=== PATIENT | female | born 1980 | race Caucasian/White ===

== ENCOUNTER → 2019-03-10 13:35 | Outpatient (BNVA) | payer MEDICAID, SELFPAY | PROVIDERS: Family Provider Family Medicine; PCP Preventive Medicine Occupational Medicine; Visit Provider Nurse Practitioner Women's Health | DX: Z01.89 Encounter for other specified special examinations (principal) | CPT/HCPCS: 84315 ==

== ENCOUNTER → 2019-04-04 09:41 | Outpatient (BNVA) | payer MEDICAID, SELFPAY | PROVIDERS: Family Provider Family Medicine; PCP Preventive Medicine Occupational Medicine; Visit Provider Obstetrics & Gynecology | DX: O09.93 Supervision of high risk pregnancy, unspecified, third trimester (principal) | CPT/HCPCS: 81000; 82950; 84315; 85027 ==

== ENCOUNTER → 2019-04-18 10:05 | Outpatient (BNVA) | payer MEDICAID, SELFPAY | PROVIDERS: Family Provider Family Medicine; PCP Preventive Medicine Occupational Medicine; Visit Provider Obstetrics & Gynecology Female Pelvic Medicine and Reconstructive Surgery | DX: Z01.89 Encounter for other specified special examinations (principal) | CPT/HCPCS: 84315 ==

== ENCOUNTER → 2019-04-19 08:45 | Outpatient (BNVA) | payer MEDICAID, SELFPAY | PROVIDERS: Family Provider Family Medicine; PCP Preventive Medicine Occupational Medicine; Visit Provider Obstetrics & Gynecology Female Pelvic Medicine and Reconstructive Surgery | DX: O99.013 Anemia complicating pregnancy, third trimester (principal); O99.810 Abnormal glucose complicating pregnancy | CPT/HCPCS: 82951; 82952 ==

== ENCOUNTER → 2019-05-04 08:46 | Outpatient (BNVA) | payer MEDICAID, SELFPAY | PROVIDERS: Family Provider Family Medicine; PCP Preventive Medicine Occupational Medicine; Visit Provider Obstetrics & Gynecology | DX: O99.210 Obesity complicating pregnancy, unspecified trimester (principal); Z36.9 Encounter for antenatal screening, unspecified; Z3A.35 35 weeks gestation of pregnancy | CPT/HCPCS: 76816; 84315 ==

== ENCOUNTER 2019-05-07 18:43 | Outpatient (CLI) | payer MEDICAID, SELFPAY ==
[2019-05-07] VITALS (8 sets, daily range): BP systolic 111–126; BP diastolic 61–69; PULSE 106–119; RESP 16; TEMP 36.7; O2SAT 97–98; BMI 40.3
== END 2019-05-07 19:34 | disposition home or self-care (01) ==
LOC: OPOB 18:51 → OBGYN 19:27 → OPOB 05-09 07:47
PROVIDERS: Family Provider Family Medicine; PCP Preventive Medicine Occupational Medicine; Visit Provider Obstetrics & Gynecology Female Pelvic Medicine and Reconstructive Surgery
DX: O26.899 Other specified pregnancy related conditions, unspecified trimester (principal); Z3A.00 Weeks of gestation of pregnancy not specified; Z91.81 History of falling
CPT/HCPCS: 99211

== ENCOUNTER → 2019-05-11 08:25 | Outpatient (BNVA) | payer MEDICAID, SELFPAY | PROVIDERS: Family Provider Family Medicine; PCP Preventive Medicine Occupational Medicine; Visit Provider Obstetrics & Gynecology | DX: Z01.89 Encounter for other specified special examinations (principal) | CPT/HCPCS: 84315 ==

== ENCOUNTER → 2019-05-18 08:32 | Outpatient (BNVA) | payer MEDICAID, SELFPAY | PROVIDERS: Family Provider Family Medicine; PCP Preventive Medicine Occupational Medicine; Visit Provider Obstetrics & Gynecology | DX: O09.522 Supervision of elderly multigravida, second trimester (principal) | CPT/HCPCS: 76816; 76819; 84315 ==

== ENCOUNTER → 2019-05-25 09:30 | Outpatient (BNVA) | payer MEDICAID, SELFPAY | PROVIDERS: Family Provider Family Medicine; PCP Preventive Medicine Occupational Medicine; Visit Provider Obstetrics & Gynecology | DX: O09.522 Supervision of elderly multigravida, second trimester (principal) | CPT/HCPCS: 76816; 76819; 84315 ==

== ENCOUNTER → 2019-05-31 09:41 | Outpatient (BNVA) | payer MEDICAID, SELFPAY | PROVIDERS: Family Provider Family Medicine; PCP Preventive Medicine Occupational Medicine; Visit Provider Obstetrics & Gynecology | DX: O09.893 Supervision of other high risk pregnancies, third trimester (principal); O24.419 Gestational diabetes mellitus in pregnancy, unspecified control; O09.529 Supervision of elderly multigravida, unspecified trimester | CPT/HCPCS: 76816; 76819; 84315; 87081 ==

== ENCOUNTER → 2019-06-07 09:33 | Outpatient (BNVA) | payer MEDICAID, SELFPAY | PROVIDERS: Family Provider Family Medicine; PCP Preventive Medicine Occupational Medicine; Visit Provider Obstetrics & Gynecology | DX: O09.522 Supervision of elderly multigravida, second trimester (principal); O24.419 Gestational diabetes mellitus in pregnancy, unspecified control | CPT/HCPCS: 76816; 76819; 84315 ==

== ENCOUNTER → 2019-06-14 10:07 | Outpatient (BNVA) | payer MEDICAID, SELFPAY | PROVIDERS: Family Provider Family Medicine; PCP Preventive Medicine Occupational Medicine; Visit Provider Obstetrics & Gynecology | DX: O09.523 Supervision of elderly multigravida, third trimester (principal) | CPT/HCPCS: 76816; 76819; 84315 ==

== ENCOUNTER 2019-06-19 18:48 | Inpatient (IN) | payer MEDICAID, SELFPAY ==
[2019-06-19 19:22] VITALS: BP 144/76; PULSE 100
[2019-06-19 19:30] VITALS: RESP 18; TEMP 36.6
[2019-06-19 20:20] LABS: Glucose Point of Care 90 mg/dL (70-110)
[2019-06-19 21:05] VITALS: BP 156/80; PULSE 91; RESP 18; TEMP 36.8
[2019-06-19 21:35] LABS: Basophils # 0.1 10^3/uL (0.0-0.1); Basophils % 0.3 %; Eosinophils # 0.1 10^3/uL (0.0-0.8); Eosinophils % 0.4 %; Hematocrit 35.5 % (37.0-47.0); Lymphocytes # 1.9 10^3/uL (0.8-4.8); Mean Corpuscular Hemoglobin 27.2 pg (28.0-34.0); Mean Corpuscular Volume 87.9 fL (81-99); Mean Platelet Volume 13.5 fL (7.4-10.4); Monocytes # 0.9 10^3/uL (0.2-0.9); Monocytes % 6.1 %; Neutrophils # 11.4 10^3/uL (1.8-7.7); Neutrophils % 79.6 %; Nucleated Red Blood Cells % 0 %; Platelet Count 158 10^3/cmm (130-400); Red Blood Count 4.04 10^6/uL (4.1-5.3); White Blood Count 14.3 10^3/uL (4.0-10.0)
[2019-06-19 22:39] LABS: Slide Review Slide Review Perform
[2019-06-19 23:15] VITALS: RESP 18; TEMP 36.7
[2019-06-20] VITALS (85 sets, daily range): BP systolic 0–185; BP diastolic 0–86; PULSE 69–109; RESP 16–18; TEMP 36.7–37.1; O2SAT 98–100; BMI 41.1
[2019-06-20] MEDS: acetaminophen 325 mg Tablet 650 MG PO ×2 (00:14→14:25)
[2019-06-20] MEDS: miSOPROStol 100 mcg tablet 25 MCG VAGINAL ×3 (04:00→14:15)
[2019-06-20] MEDS: dextrose 5%-lactated ringers 1,000 ML 125 ML IV ×2 (04:01→19:19)
[2019-06-20] MEDS: ampicillin 2,000 MG in sodium chloride 0.9% (plus) 50 ML 100 MG IV (04:03)
[2019-06-20 06:58] LABS: Glucose Point of Care 75 mg/dL (70-110)
[2019-06-20] MEDS: ampicillin 1,000 MG in sodium chloride 0.9% (plus) 50 ML 100 MG IV ×4 (09:31→21:03)
--- NOTE | 2019-06-20 09:59 | P.HP_ITS ---
Providers/Chief Complaint Admitting Physician: Dhruv Peck MD Primary Care Provider: Dwayne Daugherty MD-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 She presented to labor and delivery in the late evening of 06/19/2019 for Cytotec cervical ripening and induction of labor due to insulin requiring gestational di abetes. She received 1 dose of Cytotec 25 mcg vaginally at approximately 04: 00 this morning. Currently she is without complaints. She reported feeling a little crampy initially following the Cytotec but denies much cramping at all now. She denied any vaginal bleeding. She denied any leaking of fluid. She reported baby had been moving well. She has had breakfast this morning and reports tolerating it well. LABS 12/28/2018 Blood type: A positive Antibody screen : Negative Intake CBC:14.7< 12.4/36.4> 229 Cystic fibrosis:declined RUBELLA : EQUIVOCAL Hepatitis B surface antigen: Nonreactive Hepatitis C antibody: Nonreactive RPR: Nonreactive HIV:nonreactive Drug screen: Negative Urine culture: Negative Gonorrhea:negative Chlamydia: negative Pap smear: Negative for intraepithelial lesion or malignancy, high-risk HPV negative GCT: 130 TSH-1.61 Varicella Ig G: Confirms immunity 01/12/2019 Quad screen: Declined 04/18/2019 28 week CBC: 17.3< 10.9/35 > 230 GCT: 166 04/19/2019 GTT:91;150;160;130--- only 1 abnormal value-not gestational diabetic 05/10/2019-at [facility] Hemoglobin A1c: 5.7 NIPT-low risk female-16.5% fraction Carrier screening: Negative for cystic fibrosis, SMA, Duchenne's muscular dystrophy, fragile X syndrome 05/31/2019 GBS: POSITIVE-ANTIBIOTICS IN LABOR OBSTETRICAL ULTRASOUNDS LMP-09/19/2018 GINA by LMP-06/26/2019 1) 12/17/2018([facility]-dating) AUA-12w2d GINA by sono-06/29/2019 S=D ----------> single live intrauterine , positive movement, positive heart beat, ovaries not visualized, no adnexal masses. No free fluid. 2) 02/09/2019([facility]-anatomy) AUA-20w6d GINA by sono-06/23/2019 S=D -------> female, breech, cervix-3.5, KNOWLEDGE ANALYST-5.6 cm, EFW 396 g, 14 ounces, 78%. Placenta is posterior without previa. It is grade 1. That is a possible anterior succenturiate lobe---reassess at 26 weeks. Visualized anatomy appears normal except for poor visualization of the following structures---Cerebellum, Cerebral Ventricles, Diaphragm, Stomach, Kidneys, bilateral feet; RVOT. Recommend repeat evaluation at 26 weeks 3)03/22/19([facility]-f/u anatomy) AUA-27w5d GINA by sono-06/16/19 -----> single live intrauterine , cephalic, posterior placenta with anterior succenturiate lobe, no previa, female, DEBRA 16.3 cm, KNOWLEDGE ANALYST 5.1 cm, EFW 115 2 g, 2 pounds 9 ounces, 94 percentile. Previously unseen anatomy was visualized except for intracranial anatomy that was not clearly seen again due to presentation 4) 05/10/2019([facility] anatomy) AUA-35w1d GINA by sono-06/13/2019 S>D ------> DEBRA of 9.9 cm, single live intrauterine , cephalic, BPP 8 out of 8, EFW-2761 g, 6 pounds 1 ounce, 95 percentile. Anatomy visualized was normal except for nonvisualization of the following structures----four-chamber view of heart, bilateral feet, bilateral hands, lips profiled nose, abdominal wall-Cord insertion. 5) 06/07/2019([facility] growth-GDM) AUA-38w5d GINA by sono-06/16/2019 S=D ------> single live intrauterine , female, fundal posterior placenta with anterior succenturiate lobe, grade 3, no previa, cephalic, DEBRA 8.9 cm, KNOWLEDGE ANALYST 3.3 cm, EFW 3650 g, 8 pounds 1 ounce, 91 percentile. BPP 8 out of 8. Review of Systems Const: Denies: fever or chills ENMT: Denies: throat pain or nasal congestion Card: Denies: chest pain, palpitations or lightheadedness Resp: Denies: shortness of breath, productive cough, non-productive cough or wheezing GI: Denies: abdominal pain, nausea or vomiting : Denies: difficulty urinating, painful urination, genital itching, vaginal bleeding or vaginal discharge Neuro: Denies: headache or dizziness Psych: Denies: anxiety or depression Endo: Denies: excessive urination or excessive thirst Ricky/Lymph: Denies: easy bruising or easy bleeding Medications/Allergies Allergies Allergy/AdvReac Type Severity Reaction Status Date / Time clindamycin Allergy RASH Verified 06/14/19 09:48 [From [facility]] 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 PFSH: Medical History Patient denies significant medical history hypertension, diabetes, heart,lung,liver,kidney,thyroid,dvt/pe no genital herpes for her partner PCP: none Surgical History History of rhinoplasty (~2014) Family History Grandmother Hyperlipidemia Maternal Grandmother Cancer Paternal grandmother--brain cancer Mother Hypertension Diabetes Grandmother Diabetes maternal Family/Other Diabetes maternal aunt and maternal uncle Heart disease maternal aunt Denies family history of Colon cancer Breast cancer Uterine cancer Thyroid condition Stroke Social History Smoking and tobacco status: never smoked Alcohol intake: unknown Additional social history: - Alcohol use: Denies; social drinking prior to . 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 Other Female Reproductive History: Hx Age of Menarche: 13 History History History 3 Term 0 Miscarriages/Ectopic 2 0 Living Children 0 Care GINA Calculator Estimated Delivery Date Method Current WG Current Estimate 06/26/19 LMP (Certain) 39w 1d Other Estimates 06/29/19 Ultrasound #1 38w 5d Expected Delivery Route/Plan Vaginal Specific Issues/Plans * Obesity-prepregnancy BMI 37 * Rubella nonimmune-MMR * Advanced maternal age-declines testing * Request for sterilization * Large for gestational age fetus * Hyperglycemia-likely GDM-currently on insulin * Possible succenturiate lobe OB Visit Log Initial Weight: 229 lb Date -?-?-?-?-?-?-?-?-?-?-?- EGA Weight BP Albumin -?-?-?-?-?-?-?-?-?-?-?-?- Glucose Nitrate -?-?-?-?-?-?-?-?-?--?-?-?- Blood Fun Ht PRES HR MVMT -?-?-?-?-?-?-?-?--?-?-?-?- Edema Dilation Effacement -?-?-?-?-?-?-?-?-?-?-?- Station 12/17/18 -?-?-?-?-?-?-?-?-?-?-?- 12w 5d 229 lb (+0 oz) 118/82 NEGATIVE NORMAL -?-?-?-?-?-?-?-?-?-?-?-?- NEGATIVE -?-?-?-?-?-?-?-?-?-?-?-?- 159bpm/present by ultrasond -?-?-?-?-?-?-?-?-?-?-?-?- Negative Not examined -?-?-?-?-?-?-?-?-?-?-?- 12/28/18 -?-?-?-?-?-?-?-?-?-?-?- 14w 2d 230 lb 6.08 oz (+1 lb 6.08 oz) 152/88 NEGATIVE NORMAL -?--?-?-?-?-?-?-?-?-?-?-?- NEGATIVE -?-?-?--?-?-?-?-?-?-?-?-?- 150bpm/ present by ultrasoun d -?-?-?-?-?-?--?-?-?-?-?-?- Negative Closed Uneffaced -?-?-?-?-?-?-?-?-?-?-?- 01/12/19 -?-?-?-?-?-?-?-?-?-?-?- 16w 3d 233 lb (+4 lb) 128/82 TRACE NORMAL -?-?-?-?-?-?-?-?-?-?-?-?- NEGATIVE -?-?-?-?-?-?-?-?-?-?-?-?- 142bpm/ present by madiha -?-?-?-?-?-?-?-?-?-?-?-?- Negative Not examined -?-?-?-?-?-?-?-?-?-?-?- 02/11/19 -?-?-?-?-?-?-?-?-?-?-?- 20w 5d 239 lb 2.08 oz (+10 lb 2.08 oz) 132/88 -?-?-?-?-?-?-?-?-?-?-?-?- -?-?-?-?-?-?-?-?-?-?-?-?- 132bpm/ present by madiha White ot detected -?-?-?-?-?-?-?-?-?-?-?-?- Negative -?-?-?-?-?--?-?-?-?-?-?- 03/10/19 -?-?-?-?-?-?--?-?-?-?-?- 24w 4d 237 lb 6.4 oz (+8 lb 6.4 oz) 132/80 NEGATIVE NORMAL -?-?-?-?-?-?-?-?-?-?-?-?- NEGATIVE -?-?-?-?-?-?-?-?-?-?-?-?- 25.5 142BPM/ PRESENT BY MADIHA Bobby RESENT -?-?-?-?-?-?-?-?-?-?-?-?- NEGATIVE NOT EXAMINED -?-?-?-?-?-?-?-?-?-?-?- 04/04/19 -?-?-?-?-?-?-?-?-?-?-?- 28w 1d 245 lb 9.6 oz (+16 lb 9.6 oz) 126/80 NEGATIVE NEGATIVE -?-?-?-?-?-?-?-?-?-?-?-?- NEGATIVE -?-?-?-?-?-?-?-?-?-?-?-?- 29.5 152BPM/ PRESENT BY [facility] RESENT -?-?-?-?-?-?-?-?-?-?-?-?- NEGATIVE -?-?-?-?-?-?-?-?-?-?-?- 04/18/19 -?-?-?-?-?-?-?-?-?-?-?- 30w 1d 248 lb (+19 lb) 120/84 NEGATIVE -?-?-?-?-?-?-?-?-?-?-?-?- NEGATIVE -?-?-?-?-?-?-?-?-?-?-?-?- 32 154BPM/ PRESENT BY [employer] RESENT -?-?-?-?-?-?-?-?-?-?-?-?- NEGATIVE -?-?-?-?-?-?-?-?-?-?-?- 04/28/19 -?-?-?-?-?-?-?-?-?-?-?- 31w 4d -?-?-?-?-?-?-?-?-?-?-?-?- -?-?-?-?-?-?-?-?-?-?-?-?- -?-?-?-?-?-?-?-?-?-?-?-?- -?-?-?-?-?-?-?-?-?-?-?- 05/04/19 -?-?-?-?-?-?-?-?-?-?-?- 32w 3d 247 lb (+18 lb) 148/72 + -?-?-?-?-?-?-?-?-?-?-?-?- negative -?-?-?-?-?-?-?-?-?-?-?-?- 34.5 145 present -?-?-?-?-?-?-?-?-?-?-?-?- absent Not examined -?-?-?-?-?-?--?-?-?-?-?- 05/11/19 -?-?-?-?-?-?-?-?-?-?-?- 33w 3d 248 lb (+19 lb) 138/72 Trace (Negati ve) -?-?-?-?-?-?-?-?-?-?--?-?- Norm (Normal) Negative (Negat kunal) -?-?-?-?-?-?-?-?-?-?-?-?- Neg (Negative) 35 - 145 active -?-?-?-?-?-?-?-?-?-?-?-?- absent Not examined -?-?-?-?-?-?-?-?-?-?-?- 05/18/19 -?-?-?-?-?-?-?-?-?-?-?- 34w 3d 247 lb 4 oz (+18 lb 4 oz) 128/82 1+ (Negati ve) H -?-?-?-?-?-?-?-?-?-?-?-?- Norm (Normal) Negative (Negat kunal) -?-?-?-?-?-?-?-?-?-?-?-?- Neg (Negative) 36.5 Cephalic 140 active -?-?-?-?-?-?-?-?-?-?-?-?- absent n/a -?-?-?-?-?-?-?-?-?-?-?- 05/25/19 -?-?-?-?-?-?-?-?-?-?-?- 35w 3d 252 lb (+23 lb) 136/84 Neg (Negative ) -?-?-?-?-?-?-?-?-?-?-?-?- Norm (Normal) Negative (Negat kunal) -?-?-?-?-?-?-?-?-?-?-?-?- Neg (Negative) 37 - 154 active -?-?-?-?-?-?-?-?-?-?-?-?- absent n/a -?-?-?-?-?-?-?-?-?-?-?- 05/25/19 -?-?-?-?-?-?-?-?-?-?-?- 35w 3d -?-?-?-?-?-?-?-?-?-?-?-?- -?-?-?-?-?-?-?-?-?-?-?-?- -?-?-?-?-?-?-?-?-?-?-?-?- -?-?-?-?-?-?-?-?-?-?-?- 05/31/19 -?-?-?-?-?-?-?-?-?-?-?- 36w 2d 248 lb 2 oz (+19 lb 2 oz) 124/84 Neg (Negat kunal) -?-?-?-?-?-?-?-?-?-?-?-?- Norm (Normal) Negative (Negat kunal) -?-?-?-?-?-?-?-?-?-?-?-?- Neg (Negative) 37.5 Cephalic 145 active -?-?-?-?-?-?-?-?-?-?-?-?- absent Closed 20 -?-?-?-?-?-?-?-?-?-?-?- -4 06/07/19 -?-?-?-?-?-?-?-?-?-?-?- 37w 2d 251 lb (+22 lb) 132/84 Neg (Negative ) -?-?-?-?-?-?-?-?-?-?-?-?- Norm (Normal) Negative (Negat kunal) -?-?-?-?-?-?-?-?-?-?-?-?- Neg (Negative) 38 Cephalic 140 active -?-?-?-?-?-?-?-?-?-?-?-?- Trace bilateral 1 30 -?-?-?-?-?-?-?-?-?-?-?- -4 06/14/19 -?-?-?-?-?-?-?-?-?-?-?- 38w 2d 254 lb (+25 lb) 134/86 Trace (Negati ve) -?-?-?-?-?-?-?-?-?--?-?-?- Norm (Normal) Negative (Negat kunal) -?-?-?-?-?-?-?-?-?-?-?-?- Neg (Negative) 39.5 Cephalic 145 active -?-?-?-?-?-?-?-?-?-?-?-?- Feet---Trace 2 60 -?-?-?-?-?-?-?-?-?-?-?- -3 06/19/19 -?-?-?-?-?-?-?-?-?-?-?- 39w 0d 255 lb (+26 lb) 144/76 156/80 145/74 135/68 150/65 0/0 136/56 0/0 136/71 -?-?-?-?-?-?-?-?-?-?-?-?- -?-?-?-?-?-?-?-?-?-?--?-?- 150 150 135 145 130 135 130 130 -?-?-?-?-?-?-?-?-?-?-?-?- -?-?-?-?-?-?-?-?-?-?-?- -3 -3 -3 Notes Visit Date: 06/19/19 No visit notes to display Visit Date: 06/14/19 BERYL@ 38w2d----> no complaints; AMA-low risk NIPT; GBS positive-antibiotics in labor; obesity-BMI 45; gestational diabetic on insulin-pretty well controlled-NPH in the morning increased to 14 from 12, evening NPH unchanged at 5--BPP 10 out of 10 today-induction scheduled at 39 weeks on labor and delivery- kick counts discussed; rubella nonimmune-MMR ; tubal ligation desired Luis Patterson MD on 06/14/19 Visit Date: 06/07/19 BERYL@ 37w2d----> GBS positive-antibiotics in labor, desires sterilization, GDM on insulin-increased to NPH 12 in the morning and 4 at night; BPP 8 out of 8-NST deferred, labor consent signed today, rubella nonimmune-MMR , possible succenturiate lobe, advanced maternal age-NIPT low risk Luis Patterson MD on 06/12/19 Visit Date: 05/31/19 BERYL@ 36w2d------> no complaints GBS today; blood pressure normal; rubella nonimmune-MMR ; desires sterilization-possible postponement of sterilization secondary to coronavirus discussed; gestational diabetic on insulin-improving sugars noted-almost all fasting and post breakfast and post lunch are within normal limits-post dinner values are minimally elevated-dietary counseling done-continue insulin NPH 10-4 without change; obesity-has done a good job with weight gain; LGA fetus-sonogram for growth at next week, BPP 10 out of 10 Luis Patterson MD on 06/04/19 Visit Date: 05/25/19 No visit notes to display Visit Date: 05/25/19 BERYL@35w3d-----> no new complaints; gestational diabetic-BPP 10 out of 10, insulin increased to 10 every morning and 4 mtkzzvz-mqzafy-jd in 1 week; AMA- pending NIPT results; obesity-weight gain goals reviewed; kick counts discussed; GBS at next visit; sonogram for growth at next visit Luis Patterson MD on 05/27/19 Visit Date: 05/18/19 BERYL @ 35w3d----> no new complaints; obesity-has maintained stable weight gain; AMA-initially declined testing-awaiting results of NIPT from MFM; incomplete anatomy-patient declined further MFM evaluation; LGA-possible hypoglycemia-fingersticks log reviewed-all fasting and all postprandial values are elevated-likely gestational diabetic-started on insulin NPH 6-0-0-4; previously elevated blood pressures-blood pressure log shows that she has been completely normotensive and she has been normotensive for the last few visits- denies preeclamptic symptoms-emergency room precautions reviewed; still desires tubal ligation; rubella nonimmune; BPP 10 out of 10 with normal fluid, cephalic Luis Patterson MD on 05/27/19 Visit Date: 05/11/19 BERYL@ 33w3d-------> no complaints; advanced maternal age-declined screening-no further intervention; rubella nonimmune-MMR ; desires sterilization; LGA fetus-MFM recommended fingerstick monitoring and patient will do this over the next week; possible succenturiate lobe; incomplete anatomy mostly visualized-no further intervention or follow-up needed; status post vaccinations; obesity-weight gain goals reviewed Luis Patterson MD on 05/24/19 Visit Date: 05/04/19 Biophysical profile weekly Ultrasound here today shows estimated weight at 2648 g 97th percentile and unable to adequately visualize cranial structures and left foot due to position this lady is 40 years of age with advanced maternal age has had 2 previous losses this is her first to near term and today has some mild elevation in her blood pressure at this time. Repeat blood pressure was 114/80. I will recommend referral to maternal- medicine for consultation for recommendations for care for AMA possible chronic hypertension and LGA. ?Also unable to adequately visualize cranial structures and left foot. Visit Date: 04/28/19 PRELOAD NOTE Shu Jeff RN on 04/28/19 Visit Date: 04/18/19 BERYL @ 30 & ?1 WG - Flu vaccine completed mid December - labor precautions and kick counts discussed. - education classes discussed and encouraged; schedule provided. - Needs Tdap, abnormal 1 hour GTT schedule III hour GTT RTC: 2 week Visit Date: 04/04/19 No visit notes to display Visit Date: 01/02/20 BERYL @ 24.4 WG - n/v; resolved; not using promethazine - leg cramps; discussed mag/k/calcium - possible succinturiate lobe; reeval at 26wk scan - anatomy scan incomplete;re-eval at 26 wk - Flu vaccine completed mid December - labor precautions and kick counts discussed. - education classes discussed and encouraged; schedule provided. - Symptomology of late second trimester discussed - CBC, GCT at next visit. Visit Date: 02/11/19 BERYL at 20-5/7 WG. ?No new complaints. ?Flu vaccine recommended. ?Pertussis vaccine discussed. ?Weight gain expectations through the rest the discussed. ?Incomplete anatomy screen - follow-up ultrasound at approximately 26 weeks. Visit Date: 01/12/19 BERYL @ 16w3d------> no complaints; nausea and vomiting better controlled with Phenergan-continue taking 19 weeks; AMA-declined NIPT-declined quad; continues to desire sterilization; obesity-early testing negative-weight gain goals reviewed; anatomy sonogram prior to next visit; rubella nonimmune-MMR -counseling done; SAB precautions reviewed. Visit Date: 12/28/18 120/74 BLOOD PRESSURE RECHECK initial OB DrAmparo visit and exam at 14 weeks and 2 days-----> considering sterilization-information and counseling done; breast-feeding, contraception, blood transfusion reviewed; obesity-TSH and GCT done-counseling provided-diet and exercise reviewed; advanced maternal age-declined NIPT-counseling done; other labs drawn today including gonorrhea Chlamydia and Pap smear; flu vaccine recommended; follow-up in 2 weeks-Quad screen if desires at next visit Visit Date: 12/17/18 OBI at 12.5 WG-----> 38 year old with LMP of 09/19/2018, GINA is 06/26/2019, based on LMP and consistent with 12 week u/s. - history of SAB x 2; ultrasound confirms IUP in dates which were consistent with LMP - AMA; strongly recommended panorama - nausea; mild at night; has been using Zofran provided by a different provider; discouraged use of the Zofran and encouraged her to use the jppx-jdw-afjydkj Pepcid/B6/Unisom -Ob packet provided. Reviewed routine vist schedule, labs, approved medications in , discussed the importance of avoiding nicotine/alcohol/drugs and the effects this has on her and the , and when to notify the doctor. Medical and obstetrical history reviewed. ? -Continue vitamins. - labs at next visit; discussed NIPT, QUAD, AFP, CF. Vitals/I&O/Wt Last Vital Signs Temp 98.5 F 06/20/19 04:20 Pulse 79 06/20/19 09:49 Resp 18 06/20/19 04:20 BP 136/56 06/20/19 09:49 06/19/19 06/20/19 06/20/19 22:59 06:59 14:59 Intake Total 50 / 50 Balance 50 / 50 Weight last 48 hrs Weight 255 lb Physical Exam Const: COMMON NORMALS: no apparent distress, average body habitus, alert and well nourished GENERAL APPEARANCE: well developed ORIENTATION/CONSCIOUSNESS: Yes oriented to person, Yes oriented to place and Yes oriented to time Neck/C-Spine: GENERAL: Yes trachea midline Resp: COMMON NORMALS: normal respiratory effort and clear to auscultation bilaterally AUSCULTATION: clear to auscultation bilaterally Cardio: COMMON NORMALS: regular rate, regular rhythm, no gallops, no murmurs and no rub RATE: regular rate RHYTHM: regular rhythm GI: COMMON NORMALS: soft to palpation, non-tender, no hepatosplenomegaly and no masses AUSCULTATION: Yes normoactive bowel sounds PALPATION: Yes soft, Yes no hepatosplenomegaly and No hernia : EXTERNAL FEMALE EXAM: No hernia OTHER: Cervical exam (per nurse at 04: 05) 60% effaced, 2 cm dilated, -3 station, soft, posterior. Neuro: SENSORIUM/ORIENTATION: Yes alert, Yes oriented to person, Yes oriented to place and Yes oriented to time Psych: COMMON NORMALS: affect normal MOOD & AFFECT: Yes euthymic mood Skin: COMMON NORMALS: no rashes or lesions noted GENERAL SKIN EXAM: no rashes or lesions noted Data : 06/19/19 20:55 Other data: MONITORING: heart rate 1 30-1 40 with moderate variability and accelerations present. No decelerations noted. Sporadic contractions present. Category 1 tracing. A&P Assessment and plan (1) Gestational diabetes: 3, para 0-0-2-0 with an LMP of 09/19/2018 and an EDC of 06/26/2019 based on LMP and consistent with a 12-week ultrasound, which places her at 39- 1/7 weeks gestation today. Her sugars have been managed on insulin. She took her insulin yesterday morning, but did not take any last night. She is also not had insulin today. She was allowed to eat this morning and pre-breakfast sugars were in the 70s. She was to be checked approximately 2 hours after eating breakfast and further sugar checks will depend upon the postprandial value. Sugars will be periodically checked during labor and if necessary insulin will be used. Due to her gestational diabetes on insulin, she is being induced at this time. She has received 1 dose of Cytotec with the plan for placement of a second dose this morning. Further doses will depend upon response of the cervix. Discussed with patient that this could take several days. The typical process with inducing labor was discussed. Questions were answered. Status: Acute Qualifiers: Gestational diabetes mellitus control: insulin-controlled Trimester: third trimester Qualified Code(s): O24.414 - Gestational diabetes mellitus in [facility], insulin controlled (2) macrosomia affecting management of mother, antepartum: Her most recent ultrasound on 06/07/2019 showed a 8 lb 1 oz fetus at the 91st percentile. DEBRA was 8.9 cm. Status: Acute (3) GBS (group B Streptococcus carrier), +RV culture, currently : She is GBS positive. She has been started on ampicillin for GBS prophylaxis. Status: Acute (4) Placental abnormality in second trimester: Ultrasound had shown a possible succenturiate lobe to the anterior uterus. Her main placental disc is posterior without previa. Status: Acute (5) Obesity affecting , antepartum: Current BMI is 41. She has gained 18 pounds during the . Status: Acute (6) Rubella non-immune status, antepartum: Rubella nonimmune. Needs MMR after delivery. Status: Acute (7) Advanced maternal age affecting , antepartum: Patient was evaluated by MFM on 05/10/2019 due to advanced maternal age. She is currently 39 years of age. She had cell free DNA testing which came back as low risk. No further evaluation was performed. Status: Acute (8) Request for sterilization: Patient had been considering and is still considering sterilization. Discussed with her that due to the current coronavirus pandemic, elective quintanilla rgeries like sterilization's or not currently being performed. Discussed with her that this would need to be done as an outpatient surgery laparoscopically. Discussed with her that if she does end up needing a section, sterilization could be done during the . Discussed with the patient and her partner the other option of vasectomy which can be done as an outpatient in the office. Questions were answered. She still prefers to proceed with sterilization when appropriate. Medicaid consent form had been signed on 05/04/2019. Status: Acute Attestations Medical Necessity Statement*: Patient is currently being induced for insulin requiring gestational diabetes. Coding Level of Care Code Acute Manager Of Corporate for g Fwd Diagnoses Gestational diabetes O24.414 Gestational diabetes mellitus control: insulin-controlled Trimester: third trimester macrosomia affecting management of mother, antepartum O36.60X0 GBS (group B Streptococcus carrier), +RV culture, currently O99.820 Placental abnormality in second trimester O43.102 Obesity affecting , antepartum O99.210 Rubella non-immune status, antepartum O99.89; Z28.3 Advanced maternal age affecting , antepartum Request for sterilization Z30.2
[2019-06-20 10:20] LABS: Glucose Point of Care 92 mg/dL (70-110)
[2019-06-20 16:47] LABS: Glucose Point of Care 81 mg/dL (70-110)
[2019-06-20] MEDS: lactated ringers 1,000 ML 999 ML IV (17:38)
--- NOTE | 2019-06-20 18:52 | ANES.PREANE2 ---
Pre-Anesthetic Assessment Pre-Anesthetic Assessment: Height/Weight: Height 1.68 m Weight 115.666 kg Temp Pulse Resp BP Pulse Ox 98.4 F 105 H 17 111/60 100 06/20/19 16:00 06/20/19 18:51 06/20/19 11:54 06/20/19 18:51 06/20/19 18:36 Preop Diagnosis: IUP Proposed Procedure: Lumbar epidural Was Beta Jose M taken within 24 hours: N/A Last Intake: 08:00 Social: Social History: No alcohol and No tobacco Exam: Pre-Anes Outpt Exam: alert, oriented x 3, clear to auscultation bilaterally and regular rate & rhythm Airway: Submandibular: WNL Cervical ROM: WNL MP: 3 Dentition: Full History/ROS: No significant history except as noted and No significant complaints Pulmonary: Pulmonary: None reported CV/HEM: CV/HEM: None reported : : None reported Hepatic: Hepatic: None reported GI: GI: None reported Metabolic: Metabolic: DM (gestational) Neuropsych: Neuropsych: None reported Anesthetic Plan: ASA status: 2 Anesthesia: Regional (specify below) Meds/Allergies Current Medications: Current Medications Generic Name Dose Route Start Last Admin Trade Name Freq PRN Reason Stop Dose Admin Acetaminophen 650 mg 06/19/19 21:25 06/20/19 14:25 Tylenol PO 650 mg Q6H PRN Administration MILD TO MODERATE PAIN Ampicillin Sodium 2,000 mg/ 50 mls @ 100 mls/ hr 06/19/19 21:30 06/20/19 04:33 Sodium Chloride IV Infused ONCE SIVA Infusion Protocol Ampicillin Sodium 1,000 mg/ 50 mls @ 100 mls/ hr 06/19/19 21:30 06/20/19 17:39 Sodium Chloride IV 100 mls/hr Q4H SIVA Administration Protocol Dextrose/Lactated Ringer's 1,000 mls @ 125 m ls/hr 06/19/19 21:25 06/20/19 04:01 Dextrose 5%-Lact ated Ringers IV 125 mls/hr .Q8H PRN Administration per label comment s Ropivacaine 200 mg in 100 mls @ 6 mls/hr 06/20/19 17:30 06/20/19 17:56 Naropin Premix EPIDURAL 13 mls/hr .[id number] SIVA Administration PFSH Anesthesia PFSH: Medical History Patient denies significant medical history hypertension, diabetes, heart,lung,liver,kidney,thyroid,dvt/pe no genital herpes for her partner PCP: none Surgical History History of rhinoplasty (~2014) Family History Grandmother Hyperlipidemia Maternal Grandmother Cancer Paternal grandmother--brain cancer Mother Hypertension Diabetes Grandmother Diabetes maternal Family/Other Diabetes maternal aunt and maternal uncle Heart disease maternal aunt Denies family history of Colon cancer Breast cancer Uterine cancer Thyroid condition Stroke Social History Smoking and tobacco status: never smoked Alcohol intake: unknown Additional social history: - Alcohol use: Denies; social drinking prior to . Drug use: Denies Tobacco use: Denies Work status:Currently not working and not looking for work until after ; was working as a hospitality coordinator in a clinic, job was eliminated. Female Reproductive History: : 3 Para: 0 Spontaneous abortions: Yes (2) Data Anesthesia CBC & Chem 7: 06/19/19 20:55 Other Labs: Laboratory Results - last 48 hr 06/19/19 06/19/19 06/20/19 20:11 20:55 06:54 WBC 14.3 H RBC 4.04 L Hgb 11.0 L Hct 35.5 L MCV 87.9 MCH 27.2 L MCHC 31.0 RDW 15.0 Plt Count 158 MPV 13.5 H Neut % (Auto) 79.6 Lymph % (Auto) 13.0 [place] % (Auto) 6.1 Eos % (Auto) 0.4 Baso % (Auto) 0.3 Neut # (Auto) 11.4 H Lymph # (Auto) 1.9 [place] # (Auto) 0.9 Eos # (Auto) 0.1 Baso # (Auto) 0.1 Nucleated RBC % (auto) 0 Nucleated RBCs # 0.0 POC Glucose 90 75 06/20/19 06/20/19 10:13 16:26 WBC RBC Hgb Hct MCV MCH MCHC RDW Plt Count MPV Neut % (Auto) Lymph % (Auto) [place] % (Auto) Eos % (Auto) Baso % (Auto) Neut # (Auto) Lymph # (Auto) [place] # (Auto) Eos # (Auto) Baso # (Auto) Nucleated RBC % (auto) Nucleated RBCs # POC Glucose 92 81 Cardiac Studies: No Data to Display Anesthesia Procedures Epidural: Time Out Performed: Yes Consents Signed: Procedure Consent Consent: from patient, risks and benefits reviewed and patient agrees to proceed Lumbar Level: L3-L4 Epidural position: sitting Epidural procedure: sterile prep of area, 1% lidocaine to numb the area (3), 18 g needle, negative for paresthesia passed, neg for paresthesia, test dose given, 1.5% xylocaine 1:200k epi (5), 0.2% Ropivacaine bolus ml (10), placed PCEA (5cc q10min x 3), no systemic response, sterile dressing applied, L.U.D. no apparent complications and 0.2% Ropiavacaine @ mls/hr (12) Additional Comments: Called to OB for epidural placement, pt evaluated and assessed for placement and explained procedure. Labs reviewed. Pt agrees to proceed. placed to 5cm in space and tolerated well. Bolused over 7 min and VSS throughout per nursing chart. Last BP 129/56. Pain much improved.
[2019-06-20 20:01] LABS: Glucose Point of Care 84 mg/dL (70-110)
[2019-06-20 21:08] LABS: Glucose Point of Care 95 mg/dL (70-110)
--- NOTE | 2019-06-20 21:26 | PC.NURSE ---
DOSE OF AMPICILLIN GIVEN PER MD ORDER AT 2100 FOR SCHEDULED 2130 DOSE. MAY SCHEDULE FOR DOSES OFF TRACK.
--- NOTE | 2019-06-20 21:30 | PC.NURSE ---
NEW IV STARTED IN PT'S LEFT HAND PRIOR TO THIS NURSE'S SHIFT DUE TO IV IN LEFT FOREARM INFILTRATING.
[2019-06-20 22:06] LABS: Glucose Point of Care 97 mg/dL (70-110)
[2019-06-21] VITALS (45 sets, daily range): BP systolic 0–181; BP diastolic 0–96; PULSE 62–114; RESP 16–18; TEMP 36.4–37.5; O2SAT 96–97
[2019-06-21] MEDS: ondansetron 2 mg/ML SDV 2 mL 4 MG IVP (01:12)
[2019-06-21] MEDS: ampicillin 1,000 MG in sodium chloride 0.9% (plus) 50 ML 100 MG IV (01:30)
[2019-06-21] MEDS: oxytocin 30 UNIT/500 ML BAG 600 UNIT IV (03:19)
--- NOTE | 2019-06-21 03:47 | PM.DELIVERY ---
 Delivery Note: Date of delivery: June 21, 2019 Pre-delivery diagnoses: 1. Insulin requiring gestational diabetes in third trimester 2. Suspected macrosomia in third trimester 3. Group B strep carrier status in in third trimester 4. Maternal obesity affecting in third trimester 5. Advanced maternal age in third trimester 6. Suspected placental abnormality (suspected succenturiate lobe) in third trimester 7. Rubella nonimmune in third trimester 8. at 39-2/7 weeks gestation Post-delivery diagnoses: 1. Insulin requiring gestational diabetes - delivered. 2. Group B strep carrier status - delivered 3. Maternal obesity - delivered 4. Advanced maternal age - delivered 5. Rubella nonimmune - delivered 6. at 39-2/7 weeks gestation. 7. Viable female infant Procedure: Spontaneous vaginal delivery Op report anesthesia: Epidural Delivering Physician: Dr. Dhruv Peck Estimated blood loss (mL): 200 Pre-Delivery Course: Patient is a 39-year-old white female 3, para 0-0-2-0 with an LMP of 09/19/2018 and an EDC of 06/26/2019 based on LMP and consistent with a 12-week ultrasound, which placed her at 39-0/7 weeks gestation at the time of admission. She had presented to labor and delivery in the late evening of 06/19/2019 for cervical ripening and induction of labor due to insulin requiring gestational diabetes. On presentation, her cervix was 60% effaced, 2 cm dilated, and a -3 station. tracing was reassuring. She received a total of 3 doses of Cytotec 25 mcg vaginally during the night and the following day. She had spontaneous rupture membranes at 15:58 with clear fluid present. Cervix was 80% effaced and 3 to 4 cm dilated at the time. She became more uncomfortable over the next several hours and had epidural placed at approximately 1900. Following epidural placement, she was noted to be 7 cm dilated. By 2039, she was 9 cm dilated and was noted to be completely dilated by 23: 25. She was too numb to adequately push and she labored down. Accu-Cheks were periodically performed during the labor process with sugars being in the appropriate range. She was also started on ampicillin in the morning of 06/19 for group B strep prophylaxis. Delivery: Patient started pushing at 00:53. As the baby started to crown, the heart rate dropped into the 90s and was remaining there over several minutes. To expedite delivery, a second-degree episiotomy was made. The baby then delivered with the next contraction. She delivered at 03:15 as a spontaneous vaginal delivery of an occiput anterior, female over a second-degree midline episiotomy under epidural anesthesia. Following delivery of the infant's head, 1 loop of nuchal cord was noted. However, it was not able to be reduced before the baby spontaneously delivered with the right shoulder anterior. Nose and mouth were suctioned with bulb suction. The baby was initially placed on the mother's abdomen where the cord was clamped and cut. The baby was then handed-off to the waiting nurses per patient request. Baby was spontaneously crying and left in the care of the waiting nurses. Pitocin bolus was started. Placenta delivered intact by simple expression at 03:22. Placenta was inspected and appeared normal. No evidence of separate succenturiate lobe noted on inspection of the placenta. Manual palpation of the uterus was also performed with no evidence of retained placental fragments noted. The cervix and vagina were palpated and noted to be intact. The labia and perineum were inspected and noted to be intact except for superficial abrasions which required no repair and a second-degree midline episiotomy, which was repaired with 3-0 Vicryl suture. FINDINGS 1. Viable female infant weighing 7 lbs 12 oz (3515 g) with a length of 21-1/2 inches and Apgars of 6 at 1 minute and 9 at 5 minutes. 2. Three-vessel cord with one loop of nuchal cord noted. 3. Normal-appearing placenta with a central cord insertion. No succenturiate lobe noted. Post-Delivery Status: Mother and were left to recover in satisfactory condition. Patient still desires sterilization, but this will be scheduled as an outpatient laparoscopic procedure. Coding Level of Care Code Acute Manager Electrical for Francisco Ivan
[2019-06-21] MEDS: benzocaine-menthol 78 gm Canister 1 SPRAY TOPICAL (06:30)
[2019-06-21] MEDS: prenatal vitamin Capsule 1 CAP PO (08:47)
[2019-06-21] MEDS: docusate sodium 100 mg Capsule PO ×2 (08:48→18:16)
[2019-06-21 17:39] LABS: Hematocrit 30.7 % (37.0-47.0); Hemoglobin 9.7 g/dL (11.5-15.3); Mean Corpuscular HGB Conc 31.6 g/dL (30.0-36.0); Mean Corpuscular Hemoglobin 27.7 pg (28.0-34.0); Mean Corpuscular Volume 87.7 fL (81-99); Mean Platelet Volume 13.5 fL (7.4-10.4); Platelet Count 160 10^3/cmm (130-400); Red Cell Distribution Width 15.3 % (12.1-15.1); White Blood Count 17.7 10^3/uL (4.0-10.0)
[2019-06-22 03:40] VITALS: BP 136/82; PULSE 76; RESP 16; TEMP 36.8; O2SAT 97
--- NOTE | 2019-06-22 08:38 | PM.DCS ---
Discharge Providers Date of Admission: 06/19/19 18:48 Date of Discharge: June 22, 2019 Attending Provider at Admission: Dhruv Peck MD Attending Provider at Discharge: Dhruv Peck MD Primary Care Provider: Dwayne Daugherty MD-[facility] [place] Diagnoses at Discharge Discharge Diagnosis (1) Gestational diabetes mellitus, delivered, current hospitalization: Status: Acute (2) Obesity-delivered: Status: Acute (3) Rubella non-immune status, antepartum: Status: Acute (4) Request for sterilization: Status: Acute (5) GBS (group B Streptococcus carrier), +RV culture, currently : Status: Acute (6) Anemia during , delivered, current hospitalization: Status: Acute Reason for Visit Reason for Visit: Reason For Visit: induction Hospital Course Hospital Course: Patient is a 39-year-old white female 3, now para 1-0-2-1 with an LMP of 09/19/2018 and an EDC of 06/26/2019 based on LMP and consistent with a 12-week ultrasound. She had presented to labor and delivery on 06/19/2019 at 39-0/7 weeks gestation for cervical ripening and induction of labor due to insulin requiring gestational diabetes. During the process she received 3 doses of Cytotec 25 mcg vaginally and proceeded into labor on her own following this. She had spontaneous rupture of membranes at 15: 58 with clear fluid present on 06/20/2019. She had epidural for pain management during labor. She progressed to complete dilation by 23: 25 and then labored down. She started pushing at 00: 53 on 06/21/2019 and delivered at 03: 15. She had a female weighing 7 pounds 12 ounces (3515 g) with a length of 21-1/2 inches and Apgars of 6 at 1 minute and 9 at 5 minutes. She had a second-degree midline episiotomy which was repaired. During labor her sugars were monitored and she did not require medication for sugar management. She had also been treated with ampicillin due to positive group B strep status. DAY 1 Patient reports doing well. She is tolerating a regular diet without nausea or vomiting. She denies lightheadedness or dizziness with ambulation. She denies shortness of breath or chest pains. She reports her pain is well controlled. She denies any problems with urination. She reports passing flatus. She states that her bleeding has slowed. She is breast-feeding. She would like to go ahead and be released today even though the baby is having to stay till tomorrow. PHYSICAL EXAM: See below PLAN Discharge to home (she will be rooming-in with the baby since the baby is not being released because of maternal carrier status for GBS). Discharge instructions discussed with patient. Patient to schedule a 2-hour 75 g glucose tolerance test at approximately 6 weeks . She is to receive MMR prior to discharge from the hospital due to her nonimmune rubella status. She will be scheduled for a laparoscopic sterilization when she is at least 5 weeks . Patient had been on iron during the and will be continued on this until her visit. Physical Exam Const: COMMON NORMALS: no apparent distress, average body habitus, alert and well nourished GENERAL APPEARANCE: well developed ORIENTATION/CONSCIOUSNESS: Yes oriented to person, Yes oriented to place and Yes oriented to time Neck/C-Spine: COMMON NORMALS: thyroid normal GENERAL: Yes trachea midline THYROID: thyroid normal Resp: COMMON NORMALS: normal respiratory effort and clear to auscultation bilaterally AUSCULTATION: clear to auscultation bilaterally Cardio: COMMON NORMALS: regular rate, regular rhythm, no gallops, no murmurs and no rub RATE: regular rate RHYTHM: regular rhythm GI: COMMON NORMALS: soft to palpation, non-tender, no hepatosplenomegaly and no masses (Except for nontender firm palpable uterus, approximately 2 fingerbreadths below umbilicus) AUSCULTATION: Yes normoactive bowel sounds PALPATION: Yes soft, Yes no hepatosplenomegaly and No hernia : EXTERNAL FEMALE EXAM: No hernia Extremity: COMMON NORMALS: no calf tenderness GENERAL: Yes edema (1+ lower extremity edema) Neuro: SENSORIUM/ORIENTATION: Yes alert, Yes oriented to person, Yes oriented to place and Yes oriented to time Psych: COMMON NORMALS: affect normal MOOD & AFFECT: Yes euthymic mood Urinary Catheter Management^: Jason Latex: Cath Placed During This Visit: yes Reason for Continuing Indwelling Catheter: Other Urinary Catheter Date of Insertion: 06/20/19 Urinary Catheter Time of Insertion: 19:08 Discharge Data Data Completed and Pending: Labs from last 24 hours 06/21/19 16:15 WBC 17.7 H RBC 3.50 L Hgb 9.7 L Hct 30.7 L MCV 87.7 MCH 27.7 L MCHC 31.6 RDW 15.3 H Plt Count 160 MPV 13.5 H Vitals: Last Vital Signs Temp 98.2 F 06/22/19 03:40 Pulse 76 06/22/19 03:40 Resp 16 06/22/19 03:40 BP 136/82 06/22/19 03:40 Pulse Ox 97 06/22/19 03:40 Discharge Plan Discharge Patient Disposition: Home, Self-Care Condition: Stable Prescriptions: Continued prenat.vits,iris,[id number] Tablet 1 tab PO ONCE RF: 0 ferrous sulfate 325 mg (65 mg iron) tablet 325 mg PO .every other day RF: 0 Miralax 17 gram powder in packet 17 g PO DAILY PRNRF: 0 Discontinued (DME) insulin syringe-needle U-100 [BD Insulin Syringe] 1 mL 25 gauge x 5/8 syringe See Rx Instructions .ROUTE .MEDSUPPLY Qty: 100 RF: 0 (DME) FreeStyle Test Strip See Rx Instructions .ROUTE .MEDSUPPLY Qty: 50 RF: 0 insulin NPH isoph U-100 human 100 unit/mL suspension See Rx Instructions SUBCUT .COMPLEX RF: 0 (DME) blood-glucose meter [FreeStyle Flash System] Kit See Rx Instructions .ROUTE .MEDSUPPLY Qty: 1 RF: 0 (DME) lancets Misc See Rx Instructions .ROUTE .MEDSUPPLY Qty: 50 RF: 2 Discharge Orders: Discharge Order (Routine); Ordered 06/22/19 Ordered By: Dhruv Peck Referrals: Luis Patterson MD [Physician] - 6 Weeks ( exam with fasting 2-hour 75 g GTT in office Schedule for laparoscopic sterilization) Discharge Diet: Regular Discharge Activity: Resume usual activity Patient Instructions: OB Vaginal Deliveries - [facility] Discharge Attestations Time Spent in Discharge Care*: less than 30 min Status at Discharge: Cognitive status at discharge: cognitively intact, Behavioral status at discharge: cooperative, Functional status at discharge: independent ambulation Overall status at discharge: patient is back to baseline Quality Metrics Clinical Quality Measures During this hospital stay, did patient experience: None Coding Level of Care Code Acute Boiler Room Helper for Chg Fwd Diagnoses Gestational diabetes mellitus, delivered, current hospitalization O24.429 Obesity-delivered O99.214 Rubella non-immune status, antepartum O99.89; Z28.3 Request for sterilization Z30.2 GBS (group B Streptococcus carrier), +RV culture, currently O99.820 Anemia during , delivered, current hospitalization O99.02
--- NOTE | 2019-06-22 08:42 | ANE.PACU2 ---
 Inpatient post-anesthesia follow up: Airway intact: Yes Vital signs: Temperature 98.2 F Pulse Rate 76 Respiratory Rate 16 Blood Pressure 136/82 Pulse Oximetry 97 Oxygen Delivery Me thod Room Air Oxygen Flow Rate Fraction of Inspir ed Oxygen Hydration adequate: Yes Nausea and vomiting: No Pain level: 3 Mental status: Baseline Additional Comments: no headaches, no weakness, no signs of epidural site infeciton
[2019-06-22] MEDS: benzocaine-menthol 78 gm Canister 1 SPRAY TOPICAL (10:02)
[2019-06-22] MEDS: prenatal vitamin Capsule 1 CAP PO (10:02)
[2019-06-22] MEDS: docusate sodium 100 mg Capsule PO (10:03)
[2019-06-22 10:15] VITALS: BP 136/84; PULSE 72; RESP 17; TEMP 36.8; O2SAT 98
--- NOTE | 2019-06-22 10:58 | PC.NURSE ---
Discharge Assessment Patient is rooming in with baby, not leaving facility. Patient has been educated to remain in floor and on unit.
[2019-06-22] MEDS: measles,mumps,rubella pf Vial (w/diluent) 0.5 ML SUBCUT (11:16)
== END 2019-06-22 11:35 | disposition home or self-care (01) | DRG 807 ==
PROVIDERS: Admitting Provider Obstetrics & Gynecology; Family Provider Family Medicine; PCP Preventive Medicine Occupational Medicine; Visit Provider Obstetrics & Gynecology
DX: O24.424 Gestational diabetes mellitus in childbirth, insulin controlled (principal); Z37.0 Single live birth; O99.824 Streptococcus B carrier state complicating childbirth; Z3A.39 39 weeks gestation of pregnancy; O99.214 Obesity complicating childbirth; O99.02 Anemia complicating childbirth; D64.9 Anemia, unspecified; O69.81X0 Labor and delivery complicated by cord around neck, without compression, not applicable or unspecified; O70.1 Second degree perineal laceration during delivery
CPT/HCPCS: 12345; 36415; 36416; 51702; 59409; 82962; 85025; 85027; 90707; 96372; 96375; J0290; J2405; J2795

== ENCOUNTER → 2019-06-27 10:21 | Outpatient (BNVA) | payer MEDICAID, SELFPAY | PROVIDERS: Family Provider Family Medicine; PCP Preventive Medicine Occupational Medicine; Visit Provider Obstetrics & Gynecology | DX: O16.5 Unspecified maternal hypertension, complicating the puerperium (principal) | CPT/HCPCS: 81000 ==

== ENCOUNTER → 2019-07-27 07:54 | Outpatient (BNVA) | payer MEDICAID, SELFPAY | PROVIDERS: Family Provider Family Medicine; PCP Preventive Medicine Occupational Medicine; Visit Provider Obstetrics & Gynecology | DX: O24.429 Gestational diabetes mellitus in childbirth, unspecified control (principal) | CPT/HCPCS: 82947; 82951 ==

== ENCOUNTER 2019-08-04 06:32 | Day surgery (SDC) | payer MEDICAID, SELFPAY ==
[2019-08-03 17:13] VITALS: BMI 37.3
[2019-08-04] VITALS (8 sets, daily range): BP systolic 99–167; BP diastolic 54–95; PULSE 43–76; RESP 16–18; TEMP 36.2–36.7; O2SAT 94–100
--- NOTE | 2019-08-04 07:07 | P.ANESASSM_ITS ---
Pre-Anesthetic Assessment Pre-Anesthetic Assessment: Height/Weight: Height 1.68 m Weight 104.78 kg Temp Pulse Resp BP Pulse Ox 97.1 F L 76 16 167/95 97 08/04/19 06:55 08/04/19 06:55 08/04/19 06:55 08/04/19 06:55 08/04/19 06:55 Preop Diagnosis: Request for sterilization Proposed Procedure: Operation Date: 08/04/19 08:00 Proposed Procedures p Laparoscopic bilateral tubal fulguration with complete salpingectomy Code: 88066/Z30.2(Not Applicable) - Luis Patterson MD Last intake: Intake Last Liquid Date 08/03/19 Last Liquid Time 00:00 Last Solid Date 08/03/19 Last Solid Time 23:30 Social: Social History: No alcohol and No tobacco Exam: Pre-Anes Outpt Exam: alert, oriented x 3, clear to auscultation bilaterally and regular rate & rhythm Airway: Submandibular: WNL Cervical ROM: WNL MP: 2 Dentition: Other (teeth ok) History/ROS: No significant history except as noted Pulmonary: Pulmonary: None reported CV/HEM: CV/HEM: HTN : : None reported Hepatic: Hepatic: None reported GI: GI: None reported Metabolic: Metabolic: None reported Musc/skel: Musc/skel: None reported Neuropsych: Neuropsych: None reported Anesthetic Plan: ASA status: 2 Anesthesia: Anesthesia Evaluation and General Risk of > 500 ml blood loss (7ml/kg in children): No PFSH Anesthesia PFSH: Medical History History of gestational diabetes Gestational diabetes in her in 2019, obesity as well as strong family history of diabetes-increased risk for developing type 2 diabetes- recommend screening for diabetes every year. Patient denies significant medical history hypertension, diabetes, heart,lung,liver,kidney,thyroid,dvt/pe no genital herpes for her partner PCP: none Surgical History History of rhinoplasty (~2014) Family History Grandmother Hyperlipidemia Maternal Grandmother Cancer Paternal grandmother--brain cancer Mother Hypertension Diabetes Grandmother Diabetes maternal Family/Other Diabetes maternal aunt and maternal uncle Heart disease maternal aunt Denies family history of Colon cancer Breast cancer Uterine cancer Thyroid condition Stroke Social History Smoking and tobacco status: never smoked Alcohol intake: unknown Additional social history: - Alcohol use: Denies; social drinking prior to . 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 Female Reproductive History: Para: 0 Spontaneous abortions: Yes (2) Data Anesthesia Cardiac Studies: No Data to Display
[2019-08-04] MEDS: sodium chloride 0.9% 1,000 ML 30 ML IV (07:20)
[2019-08-04 07:25] LABS: OR HCG Qualitative Urine Negative (Negative)
--- NOTE | 2019-08-04 07:26 | W.PM.OPSUD ---
Surgery/Procedure H&P Update DATE OF PROCEDURE: August 04, 2019 DATE H&P PERFORMED: 07/27/19 H&P UPDATE INFORMATION: I have reviewed H&P completed within last 30 days, I have examined patient prior to procedure, No changes to prior documentation and H&P is in [facility] EMR on date indicated PREOP DIAGNOSIS: Request for sterilization PRIMARY INDICATION FOR PROCEDURE: Sterilization PLANNED PROCEDURE: Operation Date: 08/04/19 08:00 Proposed Procedures p Laparoscopic bilateral tubal fulguration with complete salpingectomy Code: 81676/Z30.2(Not Applicable) - Luis Patterson MD Related Problem List Diagnoses (1) Request for sterilization:
[2019-08-04 07:27] LABS: Basophils # 0.1 10^3/uL (0.0-0.1); Basophils % 0.7 %; Eosinophils # 0.4 10^3/uL (0.0-0.8); Eosinophils % 3.3 %; Hematocrit 36.6 % (37.0-47.0); Hemoglobin 11.2 g/dL (11.5-15.3); Lymphocytes % 26.7 %; Mean Corpuscular HGB Conc 30.6 g/dL (30.0-36.0); Mean Corpuscular Hemoglobin 26.5 pg (28.0-34.0); Mean Corpuscular Volume 86.5 fL (81-99); Mean Platelet Volume 12.1 fL (7.4-10.4); Monocytes # 0.7 10^3/uL (0.2-0.9); Monocytes % 6.3 %; Neutrophils # 6.9 10^3/uL (1.8-7.7); Neutrophils % 62.5 %; Nucleated Red Blood Cells % 0 %; Platelet Count 215 10^3/cmm (130-400); Red Blood Count 4.23 10^6/uL (4.1-5.3); Red Cell Distribution Width 13.6 % (12.1-15.1); White Blood Count 11.1 10^3/uL (4.0-10.0)
[2019-08-04] MEDS: silver nitrate applicator 1 EACH TOPICAL (09:32)
--- NOTE | 2019-08-04 09:43 | PM.OP ---
Operative Report Date of procedure: August 04, 2019 OPERATIVE REPORT Date of surgery: 08/04/2019 Date of dictation: 08/04/2019 Preoperative diagnosis: 39-year-old 3 para 1-0-2-1 desiring permanent sterilization, hypertension, morbid obesity; Postoperative diagnosis/findings: Same, 8-week size anteverted uterus, mobile, nontender, grade 1-2 cystocele, grade 1 uterine descent, minimal rectocele. Skin chafed on lower abdomen from shaving. On laparoscopy bilateral normal fallopian tubes and ovaries bilaterally. No trauma at site of entry, normal cul-de-sac and peritoneum. Procedure done: Sterilization via laparoscopic bilateral total salpingectomy. Specimens removed/disposition of specimens: Right and left fallopian tubes completely removed and sent to pathology Surgeon: Dr. Luis Harkins operating room assistant: Janette Cabrera Anesthesia: General endotracheal tube anesthesia Estimated blood loss: Less than 25 ml Intravenous fluids: 1500 mL of LR Urine output: 1200 mL of clear urine at the end of procedure Medications: As per anesthesia records Complications: None, patient was extubated and taken to the recovery room in a stable condition. PROCEDURE: After consents were signed patient was taken to the operating room where she was placed under general anesthesia without any difficulty. She was placed supine on the table in the lithotomy position. Exam under anesthesia revealed 8 week size anteverted uterus, mobile, nontender, grade 2 cystocele, grade 1-2 uterine descent, grade 1 rectocele, external hemorrhoids. She was then prepped and draped in usual sterile fashion. Weighted speculum and anterior wall retractors were placed in the vagina, cervix visualized and grasped with a tenaculum. ZUMI uterine manipulator was placed into the uterus without any difficulty. Catheter was placed, instruments were removed from the vagina and the legs were lowered. Attention was turned towards the abdomen where half percent Marcaine with epinephrine was injected in to her umbilicus. A 10 mm infraumbilical incision was made which was then used to place the Moore trocar in an open technique-fascia was visualized elevated cut sharply and the peritoneum was entered bluntly. No adhesions palpated around site of entry. Moore trocar was placed and inflated.. Once intra-abdominal entry was confirmed gas was turned on and intra-abdominal opening pressure was 2. The abdomen is insufflated to the pressure was 14. Survey of the abdomen revealed On laparoscopy no trauma at site of entry, normal tubes and ovaries bilaterally, normal uterus, no areas of discoloration in the posterior cul-de-sac and on the ovaries which could represent endometriosis. No other gross abnormality were identified. 5 mm trocars was placed into the right and left lower quadrant under direct visualization after injecting Marcaine. The LigaSure was used to grasp the meso salpinx under the right fallopian tube-the meso salpinx was clamped, cauterized and then cut in such a way that the fallopian tube was from the rest of the parametria. This was continued in a sequential fashion until the tube was off the cornua. This was repeated on the left side in a similar fashion without any difficulty. No bleeding was noted. The right and left fallopian tubes were taken out through the trochars and labeled and sent to pathology. Pressure intra-abdominally was lowered and no active bleeding identified. Good hemostasis noted. All instruments removed from the abdomen and the abdomen was desufflated. Trochars were removed. Fascia and the abdomen was closed with 0 Vicryl in a continuous fashion and good reapproximation was obtained-care was taken to tent the fascia upwards. The skin incision was closed with 4-0 Monocryl in a subcuticular fashion good reapproximation and hemostasis was noted. The incisions were dressed with Steri-Strips Telfa and Tegaderm. The ZUMI and Jason catheter were removed and hemostasis was noted. The patient was extubated without any difficulty and taken to the recovery room in a stable condition. FOLLOW UP: Follow-up in 2 weeks and 6 weeks with surgeon MEDICATION ON DISCHARGE: Colace 100 mg by mouth every 12 hours when necessary constipation, 30 tablets, no refills Ibuprofen 800 mg by mouth every 8 hours when necessary pain, 60 tablets, no refills. Eugene 5/325 mg 1 tablet by mouth every 6 hours when necessary pain, 25 tablets, no refills Continue other home medication DISPOSITION: Home in a stable condition Pre-op Diagnosis: Request for sterilization
--- NOTE | 2019-08-04 10:13 | SUR.PHASEI ---
0947- ORAL AIRWAY OUT, SIMPLE MASK IN PLACE AT 6LPLM, SAT 96%
[2019-08-04] MEDS: ondansetron 2 mg/ML SDV 2 mL 4 MG IVP (10:14)
--- NOTE | 2019-08-04 11:16 | SUR.PHASEII ---
spoke to pt's significant other Enzo regarding pt;s condition and update given
== END 2019-08-04 12:15 | disposition home or self-care (01) ==
PROVIDERS: PCP Family Medicine; Visit Provider Obstetrics & Gynecology
PROC: (CPT 58661; principal; 2019-08-04 08:00)
DX: Z30.2 Encounter for sterilization (principal); I10 Essential (primary) hypertension; E66.01 Morbid (severe) obesity due to excess calories; Z68.37 Body mass index [BMI] 37.0-37.9, adult; Z83.3 Family history of diabetes mellitus; Z82.49 Family history of ischemic heart disease and other diseases of the circulatory system
CPT/HCPCS: 58661; 12345; 36415; 81025; 84703; 85025; 86850; 86900; 88302; J0131; J0330; J1100; J2001; J2405; J2704; J2710; J3010; J3490; J7030

== ENCOUNTER → 2019-08-29 16:13 | Outpatient (BNVA) | payer MEDICAID, SELFPAY | PROVIDERS: PCP Family Medicine; Visit Provider Obstetrics & Gynecology | DX: R10.2 Pelvic and perineal pain (principal) | CPT/HCPCS: 81000 ==

== ENCOUNTER → 2019-08-31 13:08 | Outpatient (BNVA) | payer MEDICAID, SELFPAY | PROVIDERS: PCP Family Medicine; Visit Provider Obstetrics & Gynecology | DX: R10.2 Pelvic and perineal pain (principal); R93.89 Abnormal findings on diagnostic imaging of other specified body structures; N83.201 Unspecified ovarian cyst, right side | CPT/HCPCS: 76830 ==

== ENCOUNTER 2019-09-27 13:51 | Outpatient (CLI) | payer MEDICAID, SELFPAY ==
--- NOTE | 2019-09-27 14:00 | MM_ITS ---
WS: [id number] SCREENING DIGITAL MAMMOGRAM WITH CAD HISTORY: screening COMPARISON: None available. Bilateral CC and MLO views submitted. Computer aided detection analyzed. Breast composition: There are scattered areas of fibroglandular density. No suspicious masses, microc alcifications or architectural distortion. MM/[id number] IMPRESSION: BI-RADS: 1-Negative FOLLOW UP: 1 Year Follow-up
== END 2019-09-27 13:52 | disposition home or self-care (01) ==
LOC: RADSHAW 13:53
PROVIDERS: Visit Provider Obstetrics & Gynecology
DX: Z12.31 Encounter for screening mammogram for malignant neoplasm of breast (principal)
CPT/HCPCS: 77067

== ENCOUNTER → 2021-01-02 08:19 | Outpatient (BNVA) | payer MEDICAID, SELFPAY | PROVIDERS: Visit Provider Obstetrics & Gynecology | DX: Z01.419 Encounter for gynecological examination (general) (routine) without abnormal findings (principal) | CPT/HCPCS: 80061; 83036; 84443 ==

== ENCOUNTER 2021-01-09 15:08 | Outpatient (CLI) | payer MEDICAID, SELFPAY ==
--- NOTE | 2021-01-09 15:30 | MM_ITS ---
WS: [id number] BILATERAL DIGITAL SCREENING MAMMOGRAPHY WITH CAD CLINICAL INFORMATION: Z12.39 - Encounter for other screening for malignant neop... HISTORY: Screening mammogram. No current complaints. COMPARISON: September 27, 2019 TECHNIQUE: Bilateral CC and MLO views. FINDINGS: Scattered fibroglandular densities bilaterally. No suspicious focal mass, asymmetry, calcifications, or architectural distortion. No evidence of malignancy. MM/[id number] IMPRESSION: BI-RADS: 1-Negative FOLLOW UP: 1 Year Follow-up Recommend return to annual screening mammography.
== END 2021-01-09 15:09 | disposition home or self-care (01) ==
LOC: RADSHAW 15:11
PROVIDERS: PCP Nurse Practitioner Family; Visit Provider Obstetrics & Gynecology
DX: Z12.39 Encounter for other screening for malignant neoplasm of breast (principal)
CPT/HCPCS: 77067

== ENCOUNTER 2022-07-04 12:53 | Outpatient (CLI) | payer MEDICAID, SELFPAY ==
--- NOTE | 2022-07-04 13:05 | MM_ITS ---
WS: [id number] VIEWS: MLO and CC views both breasts. 3D digital tomosynthesis is also included in this exam. Comparison made with prior exam of 09/27/2019, 01/09/2021.. Findings: There was no sign of mass, architectural distortion or suspicious calcification in either breast. Sc attered fibroglandular densities in both breasts. MM/[id number] Impression: BI-RADS: 2-Benign FOLLOW-UP: 1 Year Follow-up This mammogram was also analyzed by the Computer Aided Detection System R2 [employer].
== END 2022-07-04 12:54 | disposition home or self-care (01) ==
PROVIDERS: PCP Nurse Practitioner Family; Visit Provider Nurse Practitioner Family
DX: Z12.31 Encounter for screening mammogram for malignant neoplasm of breast (principal)
CPT/HCPCS: 77063; 77067

== ENCOUNTER 2023-07-09 13:40 | Outpatient (CLI) | payer MEDICAID, SELFPAY ==
--- NOTE | 2023-07-09 13:45 | MM_ITS ---
WS: [id number] BILATERAL 3D TOMOSYNTHESIS DIGITAL SCREENING MAMMOGRAPHY WITH CAD CLINICAL INFORMATION: SCREENING HISTORY: Screening mammogram. No current complaints. COMPARISON: 2022 TECHNIQUE: Bilateral CC and MLO views. FINDINGS: Scattered fibroglandular densities bilaterally. No suspicious focal mass, asymmetry, calcifications, or architectural distortion. No evidence of malignancy. MM/[place] [id number] IMPRESSION: BI-RADS: 1-Negative FOLLOW UP: 1 Year Follow-up Recommend return to annual screening mammography.
== END 2023-07-09 13:41 | disposition home or self-care (01) ==
LOC: RAD 13:40
PROVIDERS: PCP Nurse Practitioner Family; Visit Provider Nurse Practitioner Family
DX: Z12.31 Encounter for screening mammogram for malignant neoplasm of breast (principal); R92.323 Mammographic fibroglandular density, bilateral breasts
CPT/HCPCS: 77063; 77067

== ENCOUNTER → 2023-12-03 16:09 | Outpatient (BNVA) | payer MEDICAID, SELFPAY | PROVIDERS: PCP Nurse Practitioner Family | DX: R05.9 Cough, unspecified (principal) | CPT/HCPCS: 87426 ==

== ENCOUNTER → 2024-02-16 11:31 | Outpatient (BNVA) | payer MEDICAID, SELFPAY | PROVIDERS: PCP Nurse Practitioner Family; Visit Provider Registered Nurse Neonatal Intensive Care | DX: M19.012 Primary osteoarthritis, left shoulder (principal) | CPT/HCPCS: 73030 ==

== ENCOUNTER 2024-11-02 10:23 | Outpatient (CLI) | payer MEDICAID, SELFPAY ==
--- NOTE | 2024-11-02 10:31 | MM_ITS ---
WS: [id number] BILATERAL SCREENING DIGITAL TOMOSYNTHESIS MAMMOGRAM WITH CAD HISTORY: SCREENING COMPARISON: 07/09/2023, 07/04/2022 Bilateral CC and MLO views with tomosynthesis and synthetic mammography submitted. Computer aided detection analyzed. Breast composition: There are scattered areas of fibroglandular density. No suspicious masses, microcalcifications or architectural distortion. MM/MM scr [place] tomosynthesis [id number] IMPRESSION: BI-RADS: 1 - Negative. FOLLOW UP: 1 Year Follow-up
== END 2024-11-02 10:24 | disposition home or self-care (01) ==
LOC: RAD 10:26
PROVIDERS: PCP Nurse Practitioner Family; Visit Provider Nurse Practitioner Family
DX: Z12.31 Encounter for screening mammogram for malignant neoplasm of breast (principal); R92.323 Mammographic fibroglandular density, bilateral breasts
CPT/HCPCS: 77063; 77067